=== PATIENT | female | born 1970 | race Caucasian/White ===

== ENCOUNTER 2021-11-28 14:23 | Emergency (ER) | payer OTHER ==
[~2021-11-28] VITALS: Ht 162.6 cm; Wt 56.7 kg
[2021-11-28 14:26] VITALS: BP 117/82
--- NOTE | 2021-11-28 14:36 | NUR ---
PATIENT CONNECTED TO BEDSIDE MONITOR. SAFETY PRECAUTIONS PUT INTO PLACE. WILL CONTINUE TO MONITOR
--- NOTE | 2021-11-28 14:38 | NUR ---
DR. DOSS EVALUATING PATIENT AT BEDSIDE.
--- NOTE | 2021-11-28 14:40 | NUR ---
50/F ADAM FROM WORK. 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 PATIENT ADMITS TO TAKING 2MG OF XANAX, STATES "I TOOK IT TO RELAX." DENIES ALCOHOL CONSUMPTION, PATIENT APPEARS SLEEPY, ABLE TO ANSWER QUESTIONS APPROPRIATELY, DENIES PAIN OR ANY OTHER COMPLAINTS. 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
--- NOTE | 2021-11-28 14:48 | NUR ---
PATIENT RESTING IN BED, VVS, RESPIRATIONS EVEN AND UNLABORED, NO SIGNS OF DISTRESS NOTED. SAFETY PRECAUTIONS PUT INTO PLACE, WILL CONTINUE TO MONITOR.
--- NOTE | 2021-11-28 15:00 | NUR ---
PATIENT UNABLE TO PROVIDE A URINE SAMPLE AT THIS TIME.
[2021-11-28 15:22] LABS: BASOPHILS # (AUTO) 0.1 K/uL (0.00-0.22); BASOPHILS % (AUTO) 0.8 % (0.0-2.0); EOSINOPHILS # (AUTO) 0.1 K/uL (0-0.4); EOSINOPHILS % (AUTO) 1.2 % (0.0-4.0); HEMATOCRIT 39.5 % (36-48); HEMOGLOBIN 13.3 g/dL (12.0-16.0); LYMPHOCYTES # (AUTO) 1.7 K/uL (2.5-16.5); LYMPHOCYTES % (AUTO) 24.5 % (20.5-51.1); MEAN CORPUSCULAR HEMOGLOBIN 29 pg (27-31); MEAN CORPUSCULAR HGB CONC 34 g/dL (33-37); MEAN CORPUSCULAR VOLUME 86.6 fL (80-94); MONOCYTES # (AUTO) 0.3 K/uL (0.8-1.0); MONOCYTES % (AUTO) 4.7 % (1.7-9.3); NEUTROPHILS # (AUTO) 4.8 K/uL (1.8-7.7); NEUTROPHILS % (AUTO) 68.8 % (42.2-75.2); PLATELET COUNT (AUTO) 281 K/uL (140-450); RED BLOOD CELL COUNT(AUTO) 4.56 MIL/uL (4.20-5.40); RED CELL DISTRIBUTION WIDTH 13.2 % (11.6-13.7); WHITE BLOOD COUNT (AUTO) 6.9 K/uL (4.8-10.8)
--- NOTE | 2021-11-28 15:27 | NUR ---
DAUGHTER ASSISTING PATIENT INTO GOWN PER PATIENT REQUEST.
--- NOTE | 2021-11-28 15:33 | NUR ---
XRAY AT PATIENT BEDSIDE.
[2021-11-28 15:51] LABS: ALBUMIN 3.9 g/dL (3.4-5.0); ANION GAP 13.1 (8-16); ASPARTATE AMINOTRANSFERASE 16 U/L (15-37); CARBON DIOXIDE 27.8 mmol/L (21-32); CHLORIDE 105 mmol/L (98-107); CREATININE 0.8 mg/dL (0.6-1.3); GFR ARICAN-AMERICAN 98 mL/min (>90); GLUCOSE 85 mg/dL (74-106); POTASSIUM 3.9 mmol/L (3.5-5.1); SODIUM SERUM 142 mmol/L (136-145); TOTAL BILIRUBIN 0.3 mg/dL (0.0-1.0); UREA NITROGEN, BLOOD 15 mg/dL (7-18)
[2021-11-28 15:55] LABS: ACETAMINOPHEN < 0.5 ug/ml (10-30); SALICYLATE < 2.8 mg/dL (2.8-20.0)
--- NOTE | 2021-11-28 15:55 | NUR ---
PATIENT TAKEN TO CT.
--- NOTE | 2021-11-28 16:07 | NUR ---
PATIENT BROUGHT BACK TO ROOM FROM CT, CONNECTED BACK TO BEDSIDE MONITOR. SAFETY PRECAUTIONS PUT INTO PLACE WILL CONTINUE TO MONITOR.
[2021-11-28 17:58] VITALS: BP 120/55
--- NOTE | 2021-11-28 18:48 | NUR ---
Patient discharged with v/s stable. Written and verbal after care instructions ABOUT BENZODIAZEPINE OVERDOSE given and explained. Patient verbalized understanding. Ambulatory with steady gait. All questions addressed prior to discharge. Advised to follow up with PMD.
--- NOTE | 2021-11-28 18:49 | NUR ---
The patient's care was reviewed and supervised by Nya Sanchez RN.
== END 2021-11-28 18:48 | disposition home or self-care (01) ==
LOC: MED 14:23
DX: T42.4X5A Adverse effect of benzodiazepines, initial encounter (principal); Y93.89 Activity, other specified
CPT/HCPCS: 36415; 70450; 71045; 80053; 82550; 84484; 85025; 93005; 99285; G0480; G0482; Q0092